=== PATIENT | female | born 2000 | race African-American/Black ===

== ENCOUNTER 2024-11-29 14:08 | Outpatient (CLI) | payer OTHER, SELFPAY | END 2024-11-29 14:50 | disposition home or self-care (01) | LOC: LABOR 14:13 → OB 15:28 | PROVIDERS: Referring Provider Obstetrics & Gynecology; Visit Provider Obstetrics & Gynecology | DX: Z34.90 Encounter for supervision of normal pregnancy, unspecified, unspecified trimester (principal) | CPT/HCPCS: 59025; G0378; G0379 ==